=== PATIENT | male | born 2000 | race Caucasian/White ===

== ENCOUNTER 2023-01-01 17:13 | Emergency (ER) | payer MEDICAID ==
[~2023-01-01] VITALS: Ht 177.8 cm; Wt 75.0 kg
[~2023-01-01 17:13] MED LIST: CHOL500050 PO; DOCU-148 PO; LIT300C PO; NICO-687 TD; NICO-907 BC; RISP1TAB98 PO; RISP2TAB85 PO; SERT-434 PO; TRAZ-256 PO; VALP250C44 PO
--- NOTE | 2023-01-01 17:56 | NUR ---
Pt in ER9. Pt came in today with his father. Pt was on a 5250 in the mental health MD. Pt is telling his dad that there is a bomb in his head. Pt is unable to sleep. Pt and father educated to POC. Pt and father in agreement. Pending MD villalobos and treatment.
[2023-01-01 18:44] LABS: BASOPHILS % (AUTO) 0.3 % (0-1); EOSINOPHILS % (AUTO) 0.2 % (0-6); HEMATOCRIT 47.9 % (42.0-52.0); HEMOGLOBIN 15.9 g/dl (14.0-17.9); LYMPHOCYTES # (AUTO) 1.8 X10'3 (1.1-4.8); LYMPHOCYTES % (AUTO) 13.3 % (21-51); MEAN CORPUSCULAR HEMOGLOBIN 29.6 PG (27.0-31.0); MEAN CORPUSCULAR HGB CONC 33.3 g/dL (33.0-36.5); MEAN CORPUSCULAR VOLUME 89.1 FL (78-98); MEAN PLATELET VOLUME 7.4 FL (7.4-10.4); MONOCYTES # (AUTO) 0.9 X10'3 (0-0.9); MONOCYTES % (AUTO) 6.8 % (2-12); NEUTROPHILS # (AUTO) 10.5 X10'3 (1.8-7.7); NEUTROPHILS % (AUTO) 79.4 % (42-75); PLATELET COUNT 236 X10'3 (140-440); RED BLOOD COUNT 5.37 X10'6 (4.70-6.10); RED CELL DISTRIBUTION WIDTH 14.2 % (11.5-14.5); WHITE BLOOD COUNT 13.2 X10'3 (4.5-11.0)
[2023-01-01 18:54] LABS: ALANINE AMINOTRANSFERASE 22 U/L (12-78); ALBUMIN 4.4 G/DL (3.4-5.0); ALBUMIN/GLOBULIN RATIO 1.3 (1.1-1.5); ALKALINE PHOSPHATASE 65 IU/L (20-180); ANION GAP 11 (8-16); ASPARTATE AMINO TRANSFERASE 15 U/L (10-37); BILIRUBIN,TOTAL 0.4 MG/DL (0.1-1.0); BLOOD UREA NITROGEN 8 MG/DL (7-18); BUN/CREATININE RATIO 10.3 (10.0-20.0); CALCIUM 9.3 MG/DL (8.5-10.1); CHLORIDE 103 MMOL/L (99-107); CREATININE 0.78 MG/DL (0.60-1.10); ETHANOL < 0.010 GM/DL (0.0-0.010); GLUCOSE 110 MG/DL (70-104); POTASSIUM 3.7 MMOL/L (3.5-5.1); SODIUM 140 MMOL/L (135-145); TOTAL CARBON DIOXIDE 26.5 MMOL/L (24-32); TOTAL PROTEIN 7.9 G/DL (6.4-8.2); eGFR > 90 ML/MIN
[2023-01-01 19:26] LABS: URINE AMPHETAMINE SCREEN NEGATIVE (Neg); URINE BARBITUATE SCREEN NEGATIVE (Neg); URINE BENZODIAZEPINES SCREEN NEGATIVE (Neg); URINE CANNABINOID SCREEN POSITIVE (Neg); URINE COCAINE SCREEN NEGATIVE (Neg); URINE METHADONE SCREEN NEGATIVE (Neg); URINE OPIATE SCREEN NEGATIVE (Neg); URINE PHENCYCLIDINE SCREEN NEGATIVE (Neg)
[2023-01-01] MEDS ORDERED: diphenhydrAMINE 50 mg/ml inj IM ONE (19:30)
[2023-01-01] MEDS ORDERED: haloperidol lactate 5mg/ml inj IM ONE (19:30)
[2023-01-01] MEDS ORDERED: LORazepam 2 mg/ml vial IM ONE (19:30)
--- NOTE | 2023-01-01 19:32 | NUR ---
This narrative writer (Zackery JORGE) is assisting the primary care TELETYPE MECHANIC with assessments and medications. The patient exhibits psychosis, he is paranoid and delusional. Patients father is at bedside. The patient has not slept for nearly three days. The patient has poor eye contact. He speeks quietly with poor rhythm. He was recently discharged from [facility]. Per the father this patient after about two days home stopped sleeping well and evolved to having the symptoms he presents with this evening. The patient is reported to have taken his am medications but no medications tonight. Per the MD we will give this patient a Benadryl, Haldol, and Ativan combination..
[2023-01-01] MEDS ORDERED: lithium carbonate 150mg capsule PO ONE (20:10)
--- NOTE | 2023-01-01 20:10 | NUR ---
Patient was cooperative with IM injections. PO [place] will be given. Patient is taking small bites of a turkey sandwich.
[2023-01-01] MEDS ORDERED: VALP250C44 PO (20:21)
[2023-01-01] MEDS ORDERED: RISP1TAB98 PO ×2 (20:22→20:26)
[2023-01-01] MEDS ORDERED: LITH150C8 PO (20:23)
[2023-01-01] MEDS ORDERED: TRAZ-256 PO (20:29)
[2023-01-01] MEDS ORDERED: SERT-153 PO (20:31)
--- NOTE | 2023-01-01 20:38 | NUR ---
This patient is now sleeping quietly on his right side. He is W/D with good color. Resp are regular at 14. Patient is in view from nurses station. Patient is now in green scrubs, warm blankets have been provided.
--- NOTE | 2023-01-01 20:42 | NUR ---
Heart rate is 88, pulse ox is 99 percent on room air.
--- NOTE | 2023-01-01 20:43 | NUR ---
Patients belongings were taken home by father. Patient only possetion is his ball cap.
--- NOTE | 2023-01-01 20:55 | NUR ---
Patient continues to sleep quietly, no distress.
--- NOTE | 2023-01-01 21:25 | NUR ---
Patient continues to sleep quietly on his left side. In view from nurses station.
--- NOTE | 2023-01-01 22:38 | NUR ---
Patient is still sleeping quietly. He has self repositioned in bed.
[2023-01-01] MEDS: risperiDONE 2mg tablet PO SCH (22:41)
[2023-01-01] MEDS ORDERED: traZODone 50mg tablet PO PRN (22:45)
[2023-01-02] MEDS: docusate sod 100mg capsule PO SCH ×2 (09:29→20:18)
[2023-01-02] MEDS: valproic acid 250mg capsule PO SCH ×2 (09:29→20:18)
[2023-01-02] MEDS: lithium carbonate 150mg capsule PO SCH ×2 (09:30→20:18)
[2023-01-02] MEDS: sertraline 50mg tablet PO SCH (09:31)
[2023-01-02] MEDS: risperiDONE 0.5mg tablet PO SCH (09:34)
[2023-01-02] MEDS ORDERED: LORazepam 1 MG tablet PO ONE (13:35)
--- NOTE | 2023-01-02 13:36 | NUR ---
Pt came to nurse's desk to let me know he was having anxiety and would like a med for it. Dr. Alcocer approved 1mg Ativan PO.
--- NOTE | 2023-01-02 14:17 | NUR ---
Pt appears to be sleeping, w/ resp even and unlabored.
--- NOTE | 2023-01-02 19:00 | NUR ---
Pt resting with eyes closed, rr even and unlabored.
--- NOTE | 2023-01-02 19:30 | NUR ---
Pt refused his dinner, when asked why pt stated "My body refused dinner."
[2023-01-02] MEDS: risperiDONE 2mg tablet PO SCH (20:18)
--- NOTE | 2023-01-02 20:49 | NUR ---
Pt was compliant with his medication. When asked why he was here pt stated "I left too soon." Pt was referring to his recent discharge from [facility]. Pt states "I am depressed, I'm stressed, I am hungry." Pt has snacks at bedside. Pt stated "I'm to weak to open up the packages." Head Of Sales And Marketing encouraged patient and he was able to complete task.
--- NOTE | 2023-01-02 22:58 | NUR ---
Pt resting comfortably on right side, rr even and unlabored.
--- NOTE | 2023-01-03 02:19 | NUR ---
Pt continues to rest comfortably, pt moved to right side. No distress note, rr even and unlabored.
--- NOTE | 2023-01-03 04:08 | NUR ---
Pt resting comfortably, rr even and unlabored.
--- NOTE | 2023-01-03 06:57 | NUR ---
Pt ambulated to bathroom, then came to nurses station to say "good morning."
[2023-01-03] MEDS: risperiDONE 0.5mg tablet PO SCH (09:21)
[2023-01-03] MEDS: sertraline 50mg tablet PO SCH (09:21)
[2023-01-03] MEDS: valproic acid 250mg capsule PO SCH (09:22)
[2023-01-03] MEDS: lithium carbonate 150mg capsule PO SCH (09:22)
[2023-01-03] MEDS: docusate sod 100mg capsule PO SCH (09:22)
--- NOTE | 2023-01-03 09:50 | NUR ---
Preliminary nurse to nurse gunnar Mckay at [facility]
--- NOTE | 2023-01-03 10:40 | NUR ---
REPEAT BINAX COVID FOR PLACEMENT- NOTIFIED DR. MALDONADO.
--- NOTE | 2023-01-03 12:26 | NUR ---
FINAL NURSE TO NURSE WITH SCARLETT AT [facility] [phone] UN[address].
--- NOTE | 2023-01-03 13:31 | NUR ---
FAXED LITHIUM RESULTS TO [facility] FAX [phone].
--- NOTE | 2023-01-03 13:32 | NUR ---
DISCHARGE NOTE Patient left unit 1310. Pt transferred to [facility]. Pt's father meet route sales delivery drivers supervisor and patient in parking lot as he discharged. Workforce Development Vice President was given pt's personal belongings. Pt was alert, however slightly disorganized. Pt was calm/cooperative. Original 5150 and copy of Valproic level was sent with route sales delivery drivers supervisor.
[2023-01-03 13:39] VITALS: BP 125/75
== END 2023-01-03 13:10 ==
LOC: ER 17:15
DX: F23 Brief psychotic disorder (principal); Z20.822 Contact with and (suspected) exposure to COVID-19; F32.A Depression, unspecified
CPT/HCPCS: 36415; 80053; 80164; 80178; 80305; 80320; 85025; 87811; 96372; 99285; J1200; J1630; J2060

== ENCOUNTER 2024-06-06 15:30 | Inpatient (IN) | payer MEDICAID ==
[~2024-06-06] VITALS: Ht 182.9 cm; Wt 104.4 kg
[~2024-06-06 15:30] MED LIST changes: -LIT300C PO; +LITH150C8 PO; -NICO-687 TD; -NICO-907 BC; +RISP-31 PO; -RISP1TAB98 PO; -RISP2TAB85 PO; +SERT-153 PO; -SERT-434 PO
[2024-06-06] MEDS: haloperidol lactate 5mg/ml inj IM ONE (17:07)
[2024-06-06] MEDS: diphenhydrAMINE 50 mg/ml inj IM ONE (17:07)
[2024-06-06] MEDS: diphenhydrAMINE 50 mg/ml inj ONE (17:08)
[2024-06-06] MEDS: LORazepam 2 mg/ml vial IM ONE (17:08)
[2024-06-06] MEDS: haloperidol lactate 5mg/ml inj ONE ×2 (17:10→17:11)
[2024-06-06 19:00] VITALS: RESP 14; O2SAT 98
[2024-06-06 20:00] VITALS: BP 109/44; PULSE 71; RESP 16; TEMP 97.3; O2SAT 97
[2024-06-07] MEDS: chlorproMAZINE 25mg/ml inj. IM ONE ×4 (01:03→22:44)
[2024-06-07 08:00] VITALS: RESP 16
[2024-06-07] MEDS ORDERED: loperamide 2mg capsule PO PRN (08:55)
[2024-06-07] MEDS ORDERED: mag hydrox/Alum hydrox/simeth 30ml oral suspension PO PRN (08:55)
[2024-06-07] MEDS ORDERED: magnesium hydroxide 30ml (MOM) UD suspension PO PRN (08:55)
[2024-06-07] MEDS ORDERED: acetaminophen 325mg tablet PO PRN (08:55)
[2024-06-07] MEDS: cholecalciferol (vitamin D3) 1,000 unit (25mcg) tablet PO SCH (11:56)
[2024-06-07] MEDS: risperiDONE 0.5mg tablet PO SCH (11:56)
[2024-06-07] MEDS: docusate sod 100mg capsule PO SCH (11:56)
[2024-06-07] MEDS: valproic acid 250mg capsule PO SCH (11:56)
[2024-06-07] MEDS: diphenhydrAMINE 50 mg/ml inj IM ONE (19:47)
[2024-06-07 20:00] VITALS: BP 110/51; RESP 16; TEMP 97.7; O2SAT 99
[2024-06-07] MEDS: risperiDONE 2mg tablet PO SCH (21:00)
[2024-06-07 21:06] LABS: BASOPHILS % (AUTO) 0.5 % (0-1); EOSINOPHILS % (AUTO) 0.2 % (0-6); HEMATOCRIT 43.7 % (42.0-52.0); HEMOGLOBIN 14.7 g/dl (14.0-17.9); LYMPHOCYTES # (AUTO) 1.8 X10'3 (1.1-4.8); LYMPHOCYTES % (AUTO) 23.1 % (21-51); MEAN CORPUSCULAR HEMOGLOBIN 29.5 PG (27.0-31.0); MEAN CORPUSCULAR HGB CONC 33.7 g/dL (33.0-36.5); MEAN CORPUSCULAR VOLUME 87.4 FL (78-98); MEAN PLATELET VOLUME 7.1 FL (7.4-10.4); MONOCYTES # (AUTO) 0.8 X10'3 (0-0.9); MONOCYTES % (AUTO) 10.6 % (2-12); NEUTROPHILS # (AUTO) 5.1 X10'3 (1.8-7.7); NEUTROPHILS % (AUTO) 65.6 % (42-75); PLATELET COUNT 199 X10'3 (140-440); RED CELL DISTRIBUTION WIDTH 13.5 % (11.5-14.5); WHITE BLOOD COUNT 7.8 X10'3 (4.5-11.0)
[2024-06-07 21:49] LABS: ALANINE AMINOTRANSFERASE 24 U/L (12-78); ALBUMIN 3.8 G/DL (3.4-5.0); ALBUMIN/GLOBULIN RATIO 1.2 (1.1-1.5); ALKALINE PHOSPHATASE 61 IU/L (46-116); ANION GAP 10 (8-16); ASPARTATE AMINO TRANSFERASE 38 U/L (10-37); BILIRUBIN,TOTAL 0.5 MG/DL (0.1-1.0); BLOOD UREA NITROGEN 9 MG/DL (7-18); BUN/CREATININE RATIO 8.8 (10.0-20.0); CHLORIDE 106 MMOL/L (99-107); CREATININE 1.02 MG/DL (0.60-1.10); GLUCOSE 89 MG/DL (70-104); POTASSIUM 3.8 MMOL/L (3.5-5.1); SODIUM 143 MMOL/L (135-145); TOTAL CARBON DIOXIDE 26.6 MMOL/L (24-32); VALPROATE 32 UG/ML (50-100); eCRCL 125 ML/MIN; eGFR > 90 ML/MIN
[2024-06-08 07:42] LABS: CHOL/HDL RATIO 3.4 (0.00-4.99); CHOLESTEROL 117 MG/DL (0-200); HDL CHOLESTEROL 34 MG/DL (35-60); LDL CHOLESTEROL 66 MG/DL (50-100); TRIGLYCERIDES 53 MG/DL (20-135)
[2024-06-08 08:00] VITALS: BP 131/81; PULSE 132; RESP 16; TEMP 98.3; O2SAT 100
[2024-06-08] MEDS: valproic acid 250mg capsule PO SCH (11:27)
[2024-06-08 20:00] VITALS: BP 135/84; PULSE 134; RESP 12; TEMP 97.2; O2SAT 100
[2024-06-09 08:00] VITALS: BP 142/74; PULSE 97; RESP 16; TEMP 98.2; O2SAT 97
[2024-06-09] MEDS: mupirocin 2% ointment 22GM TP SCH (08:00)
[2024-06-09] MEDS ORDERED: amoxicillin/clavulanate potass. 1000/62.5mg TAB.SR.12h PO SCH (10:15)
[2024-06-09] MEDS ORDERED: amox tr/potassium clavulanate 500mg/125mg TAB PO SCH (11:02)
[2024-06-09] MEDS: risperiDONE 0.5mg tablet PO ONE (14:28)
[2024-06-09] MEDS: amox tr/potassium clavulanate 500mg/125mg TAB PO SCH (14:28)
[2024-06-09 20:00] VITALS: RESP 16
[2024-06-09] MEDS ORDERED: acetaminophen 325mg tablet PO PRN (20:25)
[2024-06-09] MEDS ORDERED: docusate sodium 100mg/10ml UD cup PO PRN (20:30)
[2024-06-09] MEDS: divalproex sod 250mg ER (24-hour) tablet PO SCH (21:41)
[2024-06-09] MEDS: risperiDONE 2mg tablet PO SCH (21:42)
[2024-06-10 07:00] VITALS: BP 122/66; PULSE 78; RESP 16; TEMP 98.3; O2SAT 98
[2024-06-10 19:35] VITALS: RESP 14; O2SAT 98
[2024-06-10 20:00] VITALS: BP 99/60; PULSE 66; RESP 14; TEMP 97.5; O2SAT 98
[2024-06-11 07:00] VITALS: BP 130/64; PULSE 60; RESP 20; TEMP 98.1; O2SAT 98
[2024-06-11 19:00] VITALS: RESP 18; O2SAT 98
[2024-06-11 20:00] VITALS: BP 110/68; PULSE 68; RESP 18; TEMP 98.6; O2SAT 98
[2024-06-12 07:00] VITALS: BP 123/66; PULSE 65; RESP 14; TEMP 98.8; O2SAT 97
[2024-06-12 19:00] VITALS: BP 117/69; PULSE 85; RESP 16; TEMP 97.5; O2SAT 95
[2024-06-12] MEDS: hydrOXYzine 25 MG tablet PO PRN (20:56)
[2024-06-13 07:00] VITALS: BP 119/65; PULSE 61; RESP 18; TEMP 97.9; O2SAT 97
[2024-06-13] MEDS: acetaminophen 325mg tablet PO PRN (07:59)
[2024-06-13] MEDS: risperiDONE 0.5mg tablet PO SCH (08:00)
[2024-06-13 19:00] VITALS: RESP 16; O2SAT 98
[2024-06-13 20:00] VITALS: BP 127/72; PULSE 86; RESP 16; TEMP 98; O2SAT 99
[2024-06-14 07:00] VITALS: BP 103/61; PULSE 80; RESP 16; TEMP 96.7; O2SAT 97
[2024-06-14 19:00] VITALS: RESP 16; O2SAT 96
[2024-06-14 20:00] VITALS: BP 143/87; PULSE 80; RESP 16; TEMP 98.1; O2SAT 96
[2024-06-14] MEDS: [UNRECOGNIZED DRUG - OTHER] IM SCH (20:35)
[2024-06-15] MEDS: paliperidone palmitate 156 mg/ml inj.**IM only IM ONE (09:27)
[2024-06-15 15:03] VITALS: BP 107/59; PULSE 62; RESP 16; TEMP 97.3; O2SAT 99
[2024-06-15 19:00] VITALS: RESP 16; O2SAT 67
[2024-06-15 19:59] VITALS: BP 115/58; PULSE 81; RESP 16; TEMP 97.1; O2SAT 97
[2024-06-16 07:30] VITALS: BP 113/52; PULSE 61; RESP 18; TEMP 98.6; O2SAT 96
[2024-06-16 19:53] VITALS: BP 98/66; PULSE 83; RESP 19; TEMP 96.7; O2SAT 98
[2024-06-16 19:55] VITALS: RESP 19; O2SAT 98
[2024-06-17 08:00] VITALS: BP 109/47; PULSE 72; RESP 16; TEMP 97.5; O2SAT 100
[2024-06-17 19:00] VITALS: BP 113/63; PULSE 85; RESP 16; TEMP 97.3; O2SAT 95
[2024-06-18] MEDS ORDERED: HYDR-3686 PO (07:55)
[2024-06-18] MEDS ORDERED: DIVA250T8 PO (07:55)
[2024-06-18 08:00] VITALS: BP 115/56; PULSE 84; RESP 16; TEMP 97.6; O2SAT 98
[2024-06-18] MEDS: paliperidone palmitate 156 mg/ml inj.**IM only IM ONE (09:35)
== END 2024-06-18 18:19 | disposition home or self-care (01) | DRG 751 ==
LOC: ADULT MH 15:30
PROVIDERS: ADMIT Psychiatry & Neurology Psychiatry; ATTEND Psychiatry & Neurology Psychiatry
DX: F23 Brief psychotic disorder (principal); Z91.199 Patient's noncompliance with other medical treatment and regimen due to unspecified reason; F32.9 Major depressive disorder, single episode, unspecified; K59.00 Constipation, unspecified
CPT/HCPCS: 36415; 80053; 80061; 80164; 80178; 83036; 84146; 85025; 87081; A4649; A6212; A6213; A6449; J1200; J1630; J2060; J3230; Q0177

== ENCOUNTER 2025-04-03 14:10 | Outpatient (CLI) | payer MEDICAID ==
[~2025-04-03 14:10] MED LIST changes: +DIVA250T8 PO; -DOCU-148 PO; +HYDR-3686 PO; -LITH150C8 PO; -RISP-31 PO; -SERT-153 PO; -TRAZ-256 PO; -VALP250C44 PO
--- NOTE | 2025-04-03 14:27 | ELECTROCARDIOGRAPH REPORT ---
[facility] Test Date: 2025-04-03 Test Time: 14:17:53 Pat Name: NOREEN FLAHERTY Department: PRE/OP CARDIOLOGY Room: Gender: M Director Operating: MARIA GUADALUPE : 2000 Requested By: DONALD WATSON Order Number: [id number] Reading MD: Dr. DHRUV Sharma Measurements Intervals [place] Rate: 70 P: 33 CT: 132 QRS: 20 QRSD: 103 T: 24 QT: 384 QTc: 415 Interpretive Statements Sinus rhythm RSR' in V1 or V2, probably normal variant Electronically Signed On 04-03-2025 19:51:[address] DHRUV Sharma Please click the below link to view image of tracing.
== END 2025-04-03 23:59 | disposition home or self-care (01) ==
LOC: RAD 14:10
PROVIDERS: ATTEND Nurse Practitioner Psychiatric/Mental Health
DX: F25.1 Schizoaffective disorder, depressive type (principal); Z79.899 Other long term (current) drug therapy
CPT/HCPCS: 93005